=== PATIENT | male | born 1980 | race Two or more races ===

== ENCOUNTER 2023-03-02 11:09 | Emergency (ER) | payer BC ==
[~2023-03-02] VITALS: Ht 165.1 cm; Wt 63.5 kg
[2023-03-02] MEDS ORDERED: WELLBUTRIN SR150 MG PO (11:26)
[2023-03-02] MEDS ORDERED: TRAZODONE HCL150 MG PO (11:27)
[2023-03-02] MEDS ORDERED: STRATTERA60 MG PO (11:27)
[2023-03-02] MEDS ORDERED: NP THYROID30 MG PO (11:28)
[2023-03-02 12:27] LABS: HEMATOCRIT 46.7 % (39.0-48.0); MEAN CELL VOLUME 88.6 fL (80.0-100.00); MEAN CORPUSCULAR HEMOGLOBIN 30.3 pg (27.00-32.0); MEAN CORPUSCULAR HGB CONC 34.2 g/dl (32.0-36.0); PLATELET COUNT 320 K/uL (150-450); RED BLOOD COUNT 5.28 M/uL (4.00-6.00); RED CELL DISTRIBUTION WIDTH 13.1 % (11.5-14.5)
[2023-03-02 13:36] LABS: ALBUMIN 3.8 gm/dL (3.4-5.0); BILIRUBIN TOTAL 0.82 mg/dL (0.3-1.2); CALCIUM 9.5 mg/dL (8.5-10.1); CREATININE SERUM 1.11 mg/dL (0.70-1.30); GFR 73.37; GLOBULINA 3.8 G/DL (2.4-3.5); POTASSIUM 3.63 mEq/L (3.5-5.1); TOTAL PROTEIN 7.6 gm/dL (6.4-8.2)
== END 2023-03-02 17:31 | disposition home or self-care (01) ==
LOC: ER 11:09
PROVIDERS: Emergency Medicine
DX: I10 Essential (primary) hypertension (principal); Z88.0 Allergy status to penicillin; Z88.6 Allergy status to analgesic agent; Z88.2 Allergy status to sulfonamides